=== PATIENT | male | born 1975 | race Caucasian/White ===

== ENCOUNTER 2019-12-03 11:14 | Outpatient (CLI) | payer OTHER | END 2019-12-03 11:32 | disposition home or self-care (01) | LOC: SONOGRAMA 11:14 | PROVIDERS: ATTEND Internal Medicine Gastroenterology | DX: E78.49 Other hyperlipidemia (principal); E66.09 Other obesity due to excess calories; K76.0 Fatty (change of) liver, not elsewhere classified ==

== ENCOUNTER 2021-03-10 07:19 | Outpatient (CLI) | payer OTHER | END 2021-03-10 07:31 | disposition home or self-care (01) | LOC: EDBD 07:19 → SONOGRAMA 07:19 | DX: K76.0 Fatty (change of) liver, not elsewhere classified (principal); R94.5 Abnormal results of liver function studies ==